=== PATIENT | female | born 1940 | race Caucasian/White ===

== ENCOUNTER → 2016-09-16 | Outpatient (CLI) | payer MEDICARE, BC, OTHER ==
[2016-09-16 09:37] LABS: ALBUMIN 3.5 GM/DL (3.2-5.2); ALBUMIN/GLOBULIN RATIO 1.21 (1.00-1.93); ALKALINE PHOSPHATASE 68 U/L (45-117); ALT/SGPT 17 U/L (12-78); ANION GAP 8 MEQ/L (8-16); AST/SGOT 16 U/L (15-37); BILIRUBIN,TOTAL 0.5 MG/DL (0.2-1.0); BLOOD UREA NITROGEN 18 MG/DL (7-18); CALCIUM LEVEL 8.4 MG/DL (8.8-10.2); CARBON DIOXIDE LEVEL 29 MEQ/L (21-32); CHLORIDE LEVEL 110 MEQ/L (98-107); CHOLESTEROL LEVEL 112 MG/DL (<200); CREATININE FOR GFR 0.91 MG/DL (0.55-1.02); GLOMERULAR FILTRATION RATE > 60.0 (>39); GLUCOSE, FASTING 84 MG/DL (83-110); POTASSIUM SERUM 4.3 MEQ/L (3.5-5.1); SODIUM LEVEL 147 MEQ/L (136-145); TOTAL PROTEIN 6.4 GM/DL (6.4-8.2); TRIGLYCERIDES LEVEL 106 MG/DL (<150)
== END ==
LOC: M WUC 08:25
PROVIDERS: ATTEND Emergency Medicine
DX: I10 Essential (primary) hypertension (principal); E78.2 Mixed hyperlipidemia; E55.9 Vitamin D deficiency, unspecified

== ENCOUNTER → 2016-11-11 | Outpatient (CLI) | payer MEDICARE, BC, OTHER ==
[2016-11-11 16:59] LABS: ALBUMIN 3.5 GM/DL (3.2-5.2); ALBUMIN/GLOBULIN RATIO 1.25 (1.00-1.93); ALKALINE PHOSPHATASE 63 U/L (45-117); ALT/SGPT 21 U/L (12-78); ANION GAP 8 MEQ/L (8-16); AST/SGOT 20 U/L (15-37); BILIRUBIN,TOTAL 0.5 MG/DL (0.2-1.0); BLOOD UREA NITROGEN 14 MG/DL (7-18); CALCIUM LEVEL 8.3 MG/DL (8.8-10.2); CARBON DIOXIDE LEVEL 29 MEQ/L (21-32); CHLORIDE LEVEL 106 MEQ/L (98-107); CREATININE FOR GFR 0.91 MG/DL (0.55-1.02); GLOMERULAR FILTRATION RATE > 60.0 (>39); GLUCOSE, FASTING 93 MG/DL (83-110); POTASSIUM SERUM 4.1 MEQ/L (3.5-5.1); SODIUM LEVEL 143 MEQ/L (136-145); TOTAL PROTEIN 6.3 GM/DL (6.4-8.2)
[2016-11-11 17:11] LABS: BASO % 0.7 % (0.0-1.0); EOS # 0.1 K/mm3 (0.0-0.50); EOS % 2.7 % (0.0-3.0); LARGE UNSTAINED CELL # 0.2 K/mm3 (0.0-0.4); LARGE UNSTAINED CELL % 3.5 % (0.0-4.0); LYMPH # 1.6 K/mm3 (1.5-4.5); LYMPH % 37.1 % (24.0-44.0); MEAN CORPUSCULAR HEMOGLOBIN 33.1 pg (27.0-33.0); MEAN CORPUSCULAR HGB CONC 34.6 g/dl (32.0-36.5); MEAN CORPUSCULAR VOLUME 95.7 fl (80.0-96.0); MONO # 0.3 K/mm3 (0.0-0.8); MONO % 7.5 % (0.0-5.0); NEUTROPHILS # 2.1 K/mm3 (1.8-7.7); NEUTROPHILS % 48.5 % (36.0-66.0); PLATELET COUNT, AUTOMATED 170 k/mm3 (150-450); RED CELL DISTRIBUTION WIDTH 12.9 % (11.5-14.5); WHITE BLOOD COUNT 4.3 K/mm3 (4.0-10.0)
== END ==
LOC: M WUC 11:28
PROVIDERS: ATTEND Emergency Medicine
DX: R19.4 Change in bowel habit (principal)

== ENCOUNTER → 2017-05-04 | Outpatient (CLI) | payer MEDICARE, BC, OTHER ==
--- NOTE | 2017-05-04 14:00 | REP ---
CERVICAL SPINE, SEVEN VIEWS: HISTORY: Spondylosis. COMPARISON: 05/20/2016. There is no acute fracture. The C3-4 through C7-T1 intervertebral discs are decreased in height consistent with disc degeneration. Osteophytes are present on C3-6. The neural foramen are not well seen although there appears to be narrowing of the C3-6 neural foramina secondary to uncinate process hypertrophy. There are 2 mm of anterior subluxation of C2 on 3 with flexion. This is not seen in neutral or extension radiographs. There are 2 mm of anterior subluxation of C3 on 4. This is unchanged with flexion and reduces with extension. There are 2 mm of retrolisthesis of C4 on 5. This reduces with flexion and returns to 2 mm with extension. There are 4 mm of grade 1 spondylolisthesis of C7 on T1. This is unchanged with flexion and extension. IMPRESSION: Degenerative change as described above. Signed by Trace Downs MD 05/04/2017 02:21 P
--- NOTE | 2017-05-04 14:02 | REP ---
LUMBAR SPINE, SEVEN VIEWS: HISTORY: Spondylosis. COMPARISON: 08/04/2015. There is no acute fracture. The L3-4 and L4-5 intervertebral discs are decreased in height consistent with disc degeneration. There is narrowing of the L4-5 and L5-S1 facet joints with associated sclerosis. There are 3 mm of grade 1 spondylolisthesis of L4 on 5. This is unchanged with flexion and extension. IMPRESSION: Degenerative change as described above. Signed by Trace Downs MD 05/04/2017 02:21 P
== END ==
LOC: M WUC 12:04
PROVIDERS: ATTEND Neurological Surgery
DX: M47.816 Spondylosis without myelopathy or radiculopathy, lumbar region (principal); M47.812 Spondylosis without myelopathy or radiculopathy, cervical region

== ENCOUNTER 2017-06-12 09:03 | Emergency (ER) | payer MEDICARE, BC, OTHER ==
[~2017-06-12] VITALS: Ht 157.5 cm; Wt 68.2 kg
[2017-06-12] MEDS ORDERED: RAMI10CA PO (09:15)
[2017-06-12] MEDS ORDERED: NORC1TAB4 PO (09:15)
[2017-06-12] MEDS ORDERED: ASPI1TAB PO (09:15)
[2017-06-12] MEDS ORDERED: NITR4TASL SL (09:16)
[2017-06-12] MEDS ORDERED: ATOR1TAB19 PO (09:16)
[2017-06-12] MEDS ORDERED: ATEN25TA PO (09:16)
[2017-06-12] MEDS ORDERED: ASTE0.15 (09:16)
[2017-06-12] MEDS ORDERED: SYMB16INH INH (09:16)
[2017-06-12] MEDS ORDERED: BONI150T PO (09:16)
[2017-06-12] MEDS ORDERED: ALBU83IN INH (09:16)
[2017-06-12] MEDS ORDERED: SPIR1CAP INH (09:16)
[2017-06-12] MEDS ORDERED: FLUT1LOT EX (09:16)
[2017-06-12] MEDS ORDERED: OMEP40CA2 PO (09:16)
[2017-06-12] MEDS ORDERED: VITA1CAP25 PO (09:16)
[2017-06-12] MEDS ORDERED: MACR100C43 PO (09:16)
[2017-06-12] MEDS ORDERED: ALBUTEROL SULFATE 2.5 MG/0.5 ML INH NEB SOLN NEB ONE (10:00)
--- NOTE | 2017-06-12 10:13 | REP ---
Clinical: Shortness of breath. Technique: PA and lateral. Comparison: 07/08/2016. Findings: Mediastinum and cardiac silhouette are normal. Mild emphysematous changes cannot be excluded. A vague 1 cm ovoid density in the right mid lung zone cannot be excluded. No further consolidation, effusion, or pneumothorax. Skeletal structures are intact. Impression: Cannot exclude a vague 1 cm ovoid density in the periphery of the right mid lung. CT correlation may be warranted for further investigation. Signed by Julio Strauss MD 06/12/2017 10:04 A
[2017-06-12] MEDS ORDERED: PRED20TA PO (11:00)
[2017-06-12] MEDS ORDERED: ZITHTAB PO (11:00)
[2017-06-12 11:20] VITALS: BP 115/65
== END 2017-06-12 11:22 | disposition home or self-care (01) ==
LOC: M ED 09:03
DX: J44.0 Chronic obstructive pulmonary disease with (acute) lower respiratory infection (principal); I50.9 Heart failure, unspecified; I11.0 Hypertensive heart disease with heart failure; I25.2 Old myocardial infarction; Z88.5 Allergy status to narcotic agent; Z88.1 Allergy status to other antibiotic agents; Z79.899 Other long term (current) drug therapy; Z79.82 Long term (current) use of aspirin; Z79.51 Long term (current) use of inhaled steroids

== ENCOUNTER → 2017-06-17 | Outpatient (CLI) | payer MEDICARE, OTHER, BC ==
[~2017-06-17] MED LIST: ALBU83IN INH; ASPI1TAB PO; ASTE0.15; ATEN25TA PO; ATOR1TAB19 PO; BONI150T PO; FLUT1LOT EX; MACR100C43 PO; NITR4TASL SL; NORC1TAB4 PO; OMEP40CA2 PO; PRED20TA PO; RAMI10CA PO; SPIR1CAP INH; SYMB16INH INH; VITA1CAP25 PO; ZITHTAB PO
[2017-06-17 10:50] LABS: ALBUMIN 3.1 GM/DL (3.2-5.2); BILIRUBIN,TOTAL 0.3 MG/DL (0.2-1.0); GLOMERULAR FILTRATION RATE 57.1 (>39); POTASSIUM SERUM 4.2 MEQ/L (3.5-5.1); TOTAL PROTEIN 6.2 GM/DL (6.4-8.2)
== END ==
LOC: M WUC 08:09
PROVIDERS: ATTEND Emergency Medicine
DX: I10 Essential (primary) hypertension (principal); E78.2 Mixed hyperlipidemia; E55.9 Vitamin D deficiency, unspecified

== ENCOUNTER → 2017-08-02 | Outpatient (CLI) | payer MEDICARE, OTHER, BC ==
[2017-08-02 16:31] LABS: BLOOD UREA NITROGEN 15 MG/DL (7-18)
[2017-08-02 16:31] LABS: CREATININE FOR GFR 0.98 MG/DL (0.55-1.02); GLOMERULAR FILTRATION RATE 58.4 (>39)
== END ==
LOC: M WUC 11:23
DX: Z01.812 Encounter for preprocedural laboratory examination (principal)
CPT/HCPCS: 82565

== ENCOUNTER → 2017-11-21 | Outpatient (CLI) | payer MEDICARE, OTHER, BC | LOC: M WUC 13:36 | DX: M50.221 Other cervical disc displacement at C4-C5 level (principal); M43.16 Spondylolisthesis, lumbar region; M85.88 Other specified disorders of bone density and structure, other site; M12.88 Other specific arthropathies, not elsewhere classified, other specified site; M51.36 Other intervertebral disc degeneration, lumbar region; M25.78 Osteophyte, vertebrae; M50.31 Other cervical disc degeneration, high cervical region; M50.321 Other cervical disc degeneration at C4-C5 level; M50.322 Other cervical disc degeneration at C5-C6 level; M50.323 Other cervical disc degeneration at C6-C7 level; M47.896 Other spondylosis, lumbar region; M47.892 Other spondylosis, cervical region; D37.8 Neoplasm of uncertain behavior of other specified digestive organs | CPT/HCPCS: 82150 ==

== ENCOUNTER → 2017-11-21 | Outpatient (CLI) | payer MEDICARE, OTHER, BC ==
[2017-11-21 17:00] LABS: ALBUMIN 3.6 GM/DL (3.2-5.2); ALBUMIN/GLOBULIN RATIO 1.16 (1.00-1.93); ALKALINE PHOSPHATASE 84 U/L (45-117); ALT/SGPT 22 U/L (12-78); AMYLASE 29 U/L (25-115); ANION GAP 4 MEQ/L (8-16); AST/SGOT 22 U/L (7-37); BILIRUBIN,TOTAL 0.3 MG/DL (0.2-1.0); BLOOD UREA NITROGEN 16 MG/DL (7-18); CALCIUM LEVEL 8.4 MG/DL (8.8-10.2); CARBON DIOXIDE LEVEL 28 MEQ/L (21-32); CHLORIDE LEVEL 110 MEQ/L (98-107); CREATININE FOR GFR 1.07 MG/DL (0.55-1.30); GLOMERULAR FILTRATION RATE 52.8 (>39); GLUCOSE, FASTING 146 MG/DL (70-100); LIPASE 81 U/L (73-393); SODIUM LEVEL 142 MEQ/L (136-145); TOTAL PROTEIN 6.7 GM/DL (6.4-8.2)
[2017-11-21 17:36] LABS: BASO # 0.1 10^3/uL (0.0-0.2); BASO % 1.1 % (0.0-1.0); EOS # 0.1 10^3/uL (0.0-0.50); EOS % 1.3 % (0.0-3.0); HEMATOCRIT 36.7 % (36.0-47.0); HEMOGLOBIN 11.9 g/dl (12.0-15.5); LYMPH # 1.7 10^3/uL (1.5-4.5); LYMPH % 32.3 % (24.0-44.0); MEAN CORPUSCULAR HGB CONC 32.4 g/dl (32.0-36.5); MEAN CORPUSCULAR VOLUME 95.6 fl (80.0-96.0); MONO # 0.6 10^3/uL (0.0-0.8); MONO % 10.6 % (0.0-5.0); NEUTROPHILS # 2.9 10^3/uL (1.8-7.7); NEUTROPHILS % 54.7 % (36.0-66.0); PLATELET COUNT, AUTOMATED 201 10^3/uL (150-450); RED BLOOD COUNT 3.84 10^6/uL (4.00-5.40); RED CELL DISTRIBUTION WIDTH 13.3 % (11.5-14.5); WHITE BLOOD COUNT 5.3 10^3/uL (4.0-10.0)
[2017-11-22 11:18] LABS: CA19-9 TUMOR MARKER,CARBOHYDRA 13.4 U/ML (<35.0)
== END ==
LOC: M WUC 13:44
DX: D37.8 Neoplasm of uncertain behavior of other specified digestive organs (principal)

== ENCOUNTER → 2018-02-01 | Outpatient (CLI) | payer MEDICARE, OTHER, BC ==
[2018-02-01 14:32] LABS: CALCIUM LEVEL 8.9 MG/DL (8.8-10.2)
[2018-02-01 15:00] LABS: TOTAL 25(OH) VITAMIN D 59.5 NG/ML (30.0-100.0)
== END ==
LOC: M WUC 12:31
DX: M81.0 Age-related osteoporosis without current pathological fracture (principal)
CPT/HCPCS: 82310

== ENCOUNTER → 2018-02-26 | Outpatient (REF) | payer MEDICARE, OTHER, BC | LOC: M LAB REF 11:34 | DX: R30.0 Dysuria (principal) | CPT/HCPCS: 87088; 87186 ==

== ENCOUNTER 2018-10-26 15:32 | Emergency (ER) | payer MEDICARE, BC, OTHER ==
[~2018-10-26] VITALS: Ht 157.5 cm; Wt 67.3 kg
[2018-10-26 15:32] VITALS: BP 172/74
[~2018-10-26 15:32] MED LIST changes: -ASPI1TAB PO; +ASPI81TA26 PO; -BONI150T PO; +BONI1TAB PO; -NORC1TAB4 PO; +NORC1TAB7 PO; -RAMI10CA PO; +RAMI1CAP26 PO
[2018-10-26] MEDS ORDERED: HYDR-3719 (16:07)
[2018-10-26] MEDS ORDERED: RAMI1CAP24 (16:07)
[2018-10-26] MEDS ORDERED: PRED10TA2 PO (16:29)
[2018-10-26] MEDS ORDERED: KEFL500C17 PO (16:29)
[2018-10-26] MEDS ORDERED: predniSONE 20 MG TAB PO ONE (16:30)
[2018-10-26] MEDS ORDERED: CEPHALEXIN 500 MG CAP PO ONE (16:30)
== END 2018-10-26 16:51 | disposition home or self-care (01) ==
LOC: M ED 15:32
DX: T63.444A Toxic effect of venom of bees, undetermined, initial encounter (principal); W57.XXXA Bitten or stung by nonvenomous insect and other nonvenomous arthropods, initial encounter; Y92.019 Unspecified place in single-family (private) house as the place of occurrence of the external cause

== ENCOUNTER → 2019-05-11 | Outpatient (CLI) | payer MEDICARE, BC, OTHER ==
[~2019-05-11] MED LIST changes: +HYDR-3719; +KEFL500C17 PO; -OMEP40CA2 PO; +OMEP40CA97 PO; +PRED10TA2 PO; +RAMI1CAP24
[2019-05-11 10:08] LABS: ALBUMIN 3.4 GM/DL (3.2-5.2); BILIRUBIN,TOTAL 0.4 MG/DL (0.2-1.0); CALCIUM LEVEL 8.9 MG/DL (8.8-10.2); CHOLESTEROL RISK RATIO 1.968 (<5); CREATININE FOR GFR 1.04 MG/DL (0.55-1.30); GLOMERULAR FILTRATION RATE 54.3 (>32); POTASSIUM SERUM 4.7 MEQ/L (3.5-5.1); TOTAL PROTEIN 6.4 GM/DL (6.4-8.2)
[2019-05-11 10:17] LABS: TOTAL 25(OH) VITAMIN D 45.5 NG/ML (30.0-100.0)
== END ==
LOC: M WUC 08:40
PROVIDERS: ATTEND Physician Assistant
DX: I10 Essential (primary) hypertension (principal); E78.2 Mixed hyperlipidemia; E55.9 Vitamin D deficiency, unspecified

== ENCOUNTER → 2019-12-18 | Outpatient (CLI) | payer MEDICARE, BC, OTHER ==
--- NOTE | 2019-12-18 14:01 | REP ---
REASON: History of chronic lung disease and chest pain. The latest prior for comparison is 06/12/2019. The interstitial markings are mildly diffusely increased status quo. There is no acute patchy parenchymal opacities or pleural effusions have developed. The cardiomediastinal silhouette is unchanged. The heart is not enlarged. The pleural angles remain sharp. The osseous structures are stable and intact. IMPRESSION: Chronic changes without evidence of acute cardiopulmonary disease. Electronically Signed by Jacky Davey DO 12/18/2019 03:12 P
== END ==
LOC: M WUC 11:05
PROVIDERS: ATTEND Internal Medicine Pulmonary Disease
DX: J44.9 Chronic obstructive pulmonary disease, unspecified (principal); R07.89 Other chest pain

== ENCOUNTER → 2020-01-21 | Outpatient (CLI) | payer MEDICARE, BC, OTHER ==
--- NOTE | 2020-01-21 12:54 | REP ---
REASON FOR EXAM: Dyspnea. COMPARISON: Multiple, the latest 12/18/2019. There is no change from the prior exam. The cardiomediastinal silhouette and lung riley are stable. No acute patchy parenchymal opacities or pleural effusions have developed. The heart is not enlarged. The osseous structures are stable and intact. IMPRESSION: Stable chest. Electronically Signed by Jacky Davey DO 01/21/2020 01:24 P
== END ==
LOC: M WUC 09:40
PROVIDERS: ATTEND Physician Assistant
DX: R06.02 Shortness of breath (principal); M54.9 Dorsalgia, unspecified

== ENCOUNTER → 2020-03-17 | Outpatient (CLI) | payer MEDICARE, BC, OTHER ==
[2020-03-17 13:08] LABS: ALBUMIN 3.5 GM/DL (3.2-5.2); BILIRUBIN,TOTAL 0.6 MG/DL (0.2-1.0); CALCIUM LEVEL 9.1 MG/DL (8.8-10.2); CHOLESTEROL RISK RATIO 2.263 (<5); CREATININE FOR GFR 1.08 MG/DL (0.55-1.30); GLOMERULAR FILTRATION RATE 51.8 (>32); POTASSIUM SERUM 4.2 MEQ/L (3.5-5.1); TOTAL PROTEIN 6.1 GM/DL (6.4-8.2)
== END ==
LOC: M WUC 11:12
PROVIDERS: ATTEND Physician Assistant Medical
DX: E78.2 Mixed hyperlipidemia (principal); M81.0 Age-related osteoporosis without current pathological fracture; Z79.899 Other long term (current) drug therapy; E55.9 Vitamin D deficiency, unspecified

== ENCOUNTER → 2020-09-12 | Outpatient (CLI) | payer MEDICARE, BC, OTHER ==
--- NOTE | 2020-09-12 14:44 | REP ---
INDICATION: COPD. COMPARISON: Comparison radiographs January 21, 2020. TECHNIQUE: Two views.. FINDINGS: The lungs are hyperinflated and free of infiltrate. Pleural angles are sharp. Heart is not felt to be enlarged. The thoracic aorta is tortuous as before. There are clips in right upper quadrant the abdomen. Pulmonary vasculature is not increased. The pleural angles are sharp. There is virtually complete collapse of 1 of the midthoracic vertebrae on the lateral film unchanged from the January 21, 2020 prior study. No other or acute bony abnormality is seen. IMPRESSION: Hyperinflation. Wedged midthoracic vertebrae unchanged. No acute disease.. <Electronically signed by Keanu Louis > 09/12/20 [id number]
== END ==
LOC: M WUC 11:52
PROVIDERS: ATTEND Physician Assistant Medical
DX: J44.9 Chronic obstructive pulmonary disease, unspecified (principal); M48.54XA Collapsed vertebra, not elsewhere classified, thoracic region, initial encounter for fracture

== ENCOUNTER → 2021-02-03 | Outpatient (CLI) | payer MEDICARE, BC, OTHER ==
[~2021-02-03] MED LIST changes: +OMEP40CA4 PO; -OMEP40CA97 PO
--- NOTE | 2021-02-03 12:59 | REP ---
INDICATION: OTHER BENIGN NEOPLASM SKIN/RT UPPER LIMP INC SHOULDER. COMPARISON: None. TECHNIQUE: AP and lateral views of the right forearm FINDINGS: AP and lateral views of the right forearm demonstrate diffuse osteopenia. There is no evidence of fracture, subluxation or erosive change. There is some chondrocalcinosis at the wrist and there is osteoarthritis at the 1st carpometacarpal articulation as well as the articulation between the navicula and the greater multangular.. IMPRESSION: Diffuse osteopenia. 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 No acute bony abnormality. <Electronically signed by Keanu Louis > 02/03/21 [id number]
== END ==
LOC: M SOG 10:43
PROVIDERS: ATTEND Orthopaedic Surgery Sports Medicine
DX: D23.61 Other benign neoplasm of skin of right upper limb, including shoulder (principal)

== ENCOUNTER → 2021-02-27 | Outpatient (REF) | payer MEDICARE, BC, OTHER ==
[2021-02-27 13:01] LABS: ALBUMIN 3.5 GM/DL (3.2-5.2); BILIRUBIN,TOTAL 0.5 MG/DL (0.2-1.0); CALCIUM LEVEL 8.2 MG/DL (8.8-10.2); CHOLESTEROL RISK RATIO 2.338 (<5); CREATININE FOR GFR 1.25 MG/DL (0.55-1.30); GLOMERULAR FILTRATION RATE 43.7 (>32); POTASSIUM SERUM 4.4 MEQ/L (3.5-5.1); TOTAL PROTEIN 6.3 GM/DL (6.4-8.2)
== END ==
LOC: M LAB REF 12:17
PROVIDERS: ATTEND Nurse Practitioner Family
DX: I10 Essential (primary) hypertension (principal)

== ENCOUNTER → 2021-02-27 | Outpatient (CLI) | payer MEDICARE, BC, OTHER ==
--- NOTE | 2021-02-27 09:29 | REP ---
INDICATION: CONTUSION COMPARISON: None. TECHNIQUE: There are four views. FINDINGS: There is diffuse demineralization. There is joint space narrowing and cortical eburnation at the thumb CMC articulation, compatible with osteoarthritis. There is calcification of the triangular fibrocartilage, compatible with CPPD. IMPRESSION: Demineralization. Osteoarthritis of the thumb CMC. CPPD. <Electronically signed by Malcom Simpson > 02/27/21 [id number]
--- NOTE | 2021-02-27 09:30 | REP ---
INDICATION: CONTUSION COMPARISON: None. TECHNIQUE: There are four views. FINDINGS: There is diffuse demineralization. There is joint space narrowing and cortical eburnation of the PIP and D IP articulations and of the thumb CMC articulation, compatible with osteoarthritis. There is no fracture or dislocation. There are no calcifications or foreign bodies. IMPRESSION: Demineralization. Osteoarthritis. <Electronically signed by Malcom Simpson > 02/27/21 [id number]
== END ==
LOC: M WUC 08:54
PROVIDERS: ATTEND Physician Assistant
DX: S60.212A Contusion of left wrist, initial encounter (principal); S60.222A Contusion of left hand, initial encounter; W18.30XA Fall on same level, unspecified, initial encounter; Y92.009 Unspecified place in unspecified non-institutional (private) residence as the place of occurrence of the external cause; I10 Essential (primary) hypertension

== ENCOUNTER → 2021-04-21 | Outpatient (REF) | payer MEDICARE, BC, OTHER ==
[2021-04-21 14:16] LABS: CREATININE FOR GFR 1.13 MG/DL (0.55-1.30); GLOMERULAR FILTRATION RATE 49.1 (>32)
== END ==
LOC: M WUC 11:39
PROVIDERS: ATTEND Orthopaedic Surgery Sports Medicine
DX: M67.431 Ganglion, right wrist (principal)

== ENCOUNTER → 2021-05-26 | Outpatient (CLI) | payer MEDICARE, BC, OTHER ==
--- NOTE | 2021-05-26 15:46 | REP ---
INDICATION: SHORTNESS OF BREATH. COMPARISON: 09/12/2020 TECHNIQUE: PA and lateral FINDINGS: Cardiomediastinal silhouette lung riley are unchanged. Once again, there is lung field hyperexpansion. No acute patchy parenchymal opacities or pleural effusions have developed. There are chronic changes seen involving the spine status quo. IMPRESSION: No evidence of acute cardiopulmonary disease or significant change compared to the prior exam. <Electronically signed by Jacky Davey > 05/26/21 [id number]
== END ==
LOC: M PLAIMG 12:30
PROVIDERS: ATTEND Internal Medicine Pulmonary Disease
DX: R06.02 Shortness of breath (principal)

== ENCOUNTER → 2021-06-17 | Outpatient (CLI) | payer MEDICARE, BC, OTHER ==
[~2021-06-17] MED LIST changes: +INCR1INH INH
[2021-06-17 16:24] LABS: BASO # 0.1 10^3/uL (0.0-0.2); BASO % 0.7 % (0.0-1.0); EOS # 0.2 10^3/uL (0.0-0.5); EOS % 2.3 % (0.0-3.0); HEMATOCRIT 38.8 % (36.0-47.0); HEMOGLOBIN 12.2 g/dl (12.0-15.5); LYMPH # 1.9 10^3/uL (1.5-5.0); LYMPH % 21.5 % (24.0-44.0); MEAN CORPUSCULAR HEMOGLOBIN 31.1 pg (27.0-33.0); MEAN CORPUSCULAR HGB CONC 31.4 g/dl (32.0-36.5); MONO # 0.7 10^3/uL (0.0-0.8); MONO % 8.4 % (2.0-8.0); NEUTROPHILS # 5.8 10^3/uL (1.5-8.5); NEUTROPHILS % 66.9 % (36.0-66.0); PLATELET COUNT, AUTOMATED 197 10^3/uL (150-450); RED BLOOD COUNT 3.92 10^6/uL (4.00-5.40); WHITE BLOOD COUNT 8.7 10^3/uL (4.0-10.0)
== END ==
LOC: M WUC 10:38
PROVIDERS: ATTEND Internal Medicine Pulmonary Disease
DX: J44.9 Chronic obstructive pulmonary disease, unspecified (principal)

== ENCOUNTER → 2021-07-20 | Outpatient (CLI) | payer MEDICARE, BC, OTHER ==
[~2021-07-20] MED LIST changes: -INCR1INH INH
--- NOTE | 2021-07-20 11:52 | REP ---
INDICATION: SOB. COMPARISON: 05/26/2021 latest prior TECHNIQUE: PA and lateral FINDINGS: The superior mediastinal structures are midline. The cardiac silhouette is unremarkable in size, shape, and position. The diaphragmatic surfaces of the lungs are regular, and the costophrenic angles are clear. The pulmonary riley are clear. The lung riley are mildly hyperexpanded status quo. The imaged osseous structures are intact. IMPRESSION: There is no acute cardiopulmonary disease. <Electronically signed by Jacky Davey > 07/20/21 [id number]
--- NOTE | 2021-07-20 12:40 | REP ---
INDICATION: SOB. COMPARISON: Chest radiograph 07/20/2021. TECHNIQUE/RADIOTRACER AND DOSE: Following the intravenous administration of 5.4 mCi technetium 99 M MAA and the inhalation of 1.0 mCi technetium 99 M DTPA aerosol, multiple images are obtained in various projections. FINDINGS: There are multiple bilateral peripheral small subsegmental perfusion defects. There are corresponding multiple peripheral bilateral matching ventilation defects which are larger in general than the perfusion defects. No V/Q mismatch identified. IMPRESSION: Findings indeterminate for the assessment of probability of pulmonary embolism. Multiple bilateral peripheral small subsegmental perfusion defects with corresponding larger ventilation defects. <Electronically signed by Malcom Velazquez > 07/20/21 [id number]
== END ==
LOC: M RAD 11:10
PROVIDERS: ATTEND Internal Medicine Pulmonary Disease
DX: R06.02 Shortness of breath (principal)
CPT/HCPCS: 71046; 78582; A9540; A9567

== ENCOUNTER 2021-08-08 02:21 | Emergency (ER) | payer MEDICARE, BC, OTHER ==
[~2021-08-08] VITALS: Ht 154.9 cm; Wt 68.2 kg
[2021-08-08 03:08] LABS: BASO % 0.6 % (0.0-1.0); EOS # 0.1 10^3/uL (0.0-0.5); EOS % 2.1 % (0.0-3.0); HEMATOCRIT 35.7 % (36.0-47.0); HEMOGLOBIN 11.5 g/dl (12.0-15.5); LYMPH # 1.7 10^3/uL (1.5-5.0); LYMPH % 25.6 % (24.0-44.0); MEAN CORPUSCULAR HEMOGLOBIN 31.3 pg (27.0-33.0); MEAN CORPUSCULAR HGB CONC 32.2 g/dl (32.0-36.5); MEAN CORPUSCULAR VOLUME 97.3 fl (80.0-96.0); MONO # 0.6 10^3/uL (0.0-0.8); MONO % 9.1 % (2.0-8.0); NEUTROPHILS # 4.2 10^3/uL (1.5-8.5); NEUTROPHILS % 62.3 % (36.0-66.0); PLATELET COUNT, AUTOMATED 178 10^3/uL (150-450); RED BLOOD COUNT 3.67 10^6/uL (4.00-5.40); WHITE BLOOD COUNT 6.7 10^3/uL (4.0-10.0)
[2021-08-08] MEDS ORDERED: NITROGLYCERIN 0.4 MG SUBL TABLET SL PRN (03:20)
[2021-08-08] MEDS ORDERED: INCR1INH INH (03:25)
[2021-08-08 03:26] LABS: CK-MB VALUE MASS 1.3 NG/ML (<3.6); MB/CK RELATIVE INDEX 1.18 (< OR =4)
[2021-08-08 03:27] VITALS: BP 207/89
[2021-08-08 03:37] LABS: ALBUMIN 3.4 GM/DL (3.2-5.2); BILIRUBIN,TOTAL 0.3 MG/DL (0.2-1.0); CALCIUM LEVEL 8.5 MG/DL (8.8-10.2); CREATININE FOR GFR 1.09 MG/DL (0.55-1.30); GLOMERULAR FILTRATION RATE 51.2 (>32); POTASSIUM SERUM 4.4 MEQ/L (3.5-5.1); TOTAL PROTEIN 6.2 GM/DL (6.4-8.2)
[2021-08-08] MEDS ORDERED: ACETAMINOPHEN 500 MG TAB PO ONE (04:55)
[2021-08-08 05:06] VITALS: BP 185/83
== END 2021-08-08 05:15 | disposition home or self-care (01) ==
LOC: M ED 02:21
DX: M94.0 Chondrocostal junction syndrome [Tietze] (principal); I45.19 Other right bundle-branch block; I11.0 Hypertensive heart disease with heart failure; I50.9 Heart failure, unspecified; I25.2 Old myocardial infarction; E78.5 Hyperlipidemia, unspecified; K21.9 Gastro-esophageal reflux disease without esophagitis; J44.9 Chronic obstructive pulmonary disease, unspecified; Z88.1 Allergy status to other antibiotic agents; Z88.5 Allergy status to narcotic agent; Z79.899 Other long term (current) drug therapy; Z79.82 Long term (current) use of aspirin; Z79.51 Long term (current) use of inhaled steroids

== ENCOUNTER → 2021-08-20 | Outpatient (CLI) | payer MEDICARE, BC, OTHER ==
[~2021-08-20] MED LIST changes: +INCR1INH INH
[2021-08-20 10:57] LABS: ALBUMIN 3.7 GM/DL (3.2-5.2); BILIRUBIN,TOTAL 0.4 MG/DL (0.2-1.0); CALCIUM LEVEL 8.9 MG/DL (8.8-10.2); CHOLESTEROL RISK RATIO 2.177 (<5); CREATININE FOR GFR 1.09 MG/DL (0.55-1.30); GLOMERULAR FILTRATION RATE 51.2 (>32); POTASSIUM SERUM 4.5 MEQ/L (3.5-5.1); TOTAL PROTEIN 6.5 GM/DL (6.4-8.2)
== END ==
LOC: M WUC 08:07
PROVIDERS: ATTEND Nurse Practitioner Family
DX: I10 Essential (primary) hypertension (principal)

== ENCOUNTER 2021-10-23 11:45 | Inpatient (IN) | payer MEDICARE, BC, OTHER ==
[~2021-10-23] VITALS: Ht 154.9 cm; Wt 70.3 kg
[~2021-10-23 11:45] MED LIST changes: +AMLO1TAB24 PO; +CARV12.5 PO; +ELIQ2.5T PO; +HYDR-3363 PO; -HYDR-3719; +HYDR-3719 PO; +MUCI600T31 PO; +POTA-136 PO; -RAMI1CAP24; +RAMI1CAP24 PO; +TRIM100T16 PO; +VITA200031 PO; +ZOSY1SOL5 IV
[2021-10-23] MEDS ORDERED: NITROGLYCERIN 0.4 MG SUBL TABLET SL PRN (12:05)
[2021-10-23] MEDS ORDERED: ACETAMINOPHEN TAB 650MG DOSE (2X325MG) PO PRN (12:05)
[2021-10-23 16:25] VITALS: BP 138/64
[2021-10-23] MEDS: PIPERACILLIN/TAZOBACTAM SOD 3.375 GM in D5W MINI-BAG PLUS 50 ML IV SCH (19:21)
[2021-10-23] MEDS: SYMBICORT 160/4.5MCG INHALER 6GM INH SCH (19:23)
[2021-10-23] MEDS: COMBIVENT RESPIMAT 100-20MCG INHALER 4GM INH SCH (19:23)
[2021-10-23 20:00] VITALS: BP 150/82
[2021-10-23] MEDS: OMEPRAZOLE 20MG CAP PO SCH (20:22)
[2021-10-23] MEDS: LACTOBACILLUS ACIDOPHILUS CAP (BACID) PO SCH (20:22)
[2021-10-23] MEDS: CARVedilol 12.5 MG TAB PO SCH (20:22)
[2021-10-23] MEDS: MAGNESIUM OXIDE 400MG TAB (MAG-OX) PO SCH (20:22)
[2021-10-23] MEDS: guaiFENesin 200 MG TAB PO SCH (20:23)
[2021-10-23] MEDS: ASPIRIN 81MG ENTERIC TABLET PO SCH (20:23)
[2021-10-23] MEDS: APIXABAN 2.5 MG TAB (ELIQUIS) PO SCH (20:23)
[2021-10-23] MEDS: ATORVASTATIN 10 MG TAB PO SCH (20:23)
[2021-10-23] MEDS: ACETAMINOPHEN 500 MG TAB PO SCH (20:23)
[2021-10-23] MEDS: DOCUSATE SODIUM 100MG CAPSULE PO SCH (20:26)
[2021-10-23] MEDS: SENNA 8.6 MG TAB (SENOKOT) PO SCH (20:27)
[2021-10-23] MEDS: REMEDY PHYTOPLEX Z-GUARD PASTE 113GM TUBE (FROM STOREROOM PRODUCT) TOP SCH (20:27)
[2021-10-24] MEDS: PIPERACILLIN/TAZOBACTAM SOD 3.375 GM in D5W MINI-BAG PLUS 50 ML IV SCH ×5 (00:09→23:45)
[2021-10-24] MEDS: RAMELTEON 8 MG TAB (ROZEREM) PO PRN ×2 (00:17→20:21)
[2021-10-24 06:00] VITALS: BP 170/90
[2021-10-24] MEDS: amLODIPine 5 MG TAB PO SCH (06:21)
[2021-10-24] MEDS: CARVedilol 12.5 MG TAB PO SCH ×2 (06:21→20:21)
[2021-10-24] MEDS: SYMBICORT 160/4.5MCG INHALER 6GM INH SCH ×2 (07:28→19:36)
[2021-10-24] MEDS: COMBIVENT RESPIMAT 100-20MCG INHALER 4GM INH SCH ×4 (07:28→19:36)
[2021-10-24 07:56] VITALS: BP 112/62
[2021-10-24 08:01] LABS: BASO % 0.4 % (0.0-1.0); EOS # 0.2 10^3/uL (0.0-0.5); EOS % 2.7 % (0.0-3.0); HEMATOCRIT 33.1 % (36.0-47.0); HEMOGLOBIN 10.5 g/dl (12.0-15.5); LYMPH # 1.1 10^3/uL (1.5-5.0); LYMPH % 13.2 % (24.0-44.0); MEAN CORPUSCULAR HEMOGLOBIN 30.9 pg (27.0-33.0); MEAN CORPUSCULAR HGB CONC 31.7 g/dl (32.0-36.5); MEAN CORPUSCULAR VOLUME 97.4 fl (80.0-96.0); MONO # 0.4 10^3/uL (0.0-0.8); MONO % 5.2 % (2.0-8.0); NEUTROPHILS # 6.5 10^3/uL (1.5-8.5); NEUTROPHILS % 76.8 % (36.0-66.0); PLATELET COUNT, AUTOMATED 381 10^3/uL (150-450); WHITE BLOOD COUNT 8.4 10^3/uL (4.0-10.0)
[2021-10-24 08:27] LABS: ALBUMIN 2.6 GM/DL (3.2-5.2); BILIRUBIN,TOTAL 0.5 MG/DL (0.2-1.0); CALCIUM LEVEL 8.9 MG/DL (8.8-10.2); CREATININE FOR GFR 1.17 MG/DL (0.55-1.30); GLOMERULAR FILTRATION RATE 47.1 (>32); POTASSIUM SERUM 4.8 MEQ/L (3.5-5.1); TOTAL PROTEIN 6.1 GM/DL (6.4-8.2)
[2021-10-24] MEDS: ACETAMINOPHEN 500 MG TAB PO SCH ×3 (09:00→23:46)
[2021-10-24] MEDS: REMEDY PHYTOPLEX Z-GUARD PASTE 113GM TUBE (FROM STOREROOM PRODUCT) TOP SCH ×3 (09:00→19:43)
[2021-10-24] MEDS: DOCUSATE SODIUM 100MG CAPSULE PO SCH ×2 (09:00→19:43)
[2021-10-24] MEDS: APIXABAN 2.5 MG TAB (ELIQUIS) PO SCH ×2 (09:01→20:21)
[2021-10-24] MEDS: guaiFENesin 200 MG TAB PO SCH ×3 (09:01→20:21)
[2021-10-24] MEDS: LACTOBACILLUS ACIDOPHILUS CAP (BACID) PO SCH ×4 (09:06→20:21)
[2021-10-24] MEDS: POTASSIUM CHLORIDE 10MEQ SR TABLET PO SCH (09:07)
[2021-10-24] MEDS: MAGNESIUM OXIDE 400MG TAB (MAG-OX) PO SCH ×2 (09:09→20:22)
[2021-10-24 14:00] VITALS: BP 132/62
[2021-10-24] MEDS: SENNA 8.6 MG TAB (SENOKOT) PO SCH (19:43)
[2021-10-24 20:00] VITALS: BP 152/80
[2021-10-24] MEDS: OMEPRAZOLE 20MG CAP PO SCH (20:21)
[2021-10-24] MEDS: ASPIRIN 81MG ENTERIC TABLET PO SCH (20:21)
[2021-10-24] MEDS: ATORVASTATIN 10 MG TAB PO SCH (20:22)
[2021-10-25] MEDS: PIPERACILLIN/TAZOBACTAM SOD 3.375 GM in D5W MINI-BAG PLUS 50 ML IV SCH ×4 (05:32→23:47)
[2021-10-25 06:00] VITALS: BP 160/92
[2021-10-25] MEDS: SYMBICORT 160/4.5MCG INHALER 6GM INH SCH ×2 (07:31→19:54)
[2021-10-25] MEDS: COMBIVENT RESPIMAT 100-20MCG INHALER 4GM INH SCH ×4 (07:31→19:54)
[2021-10-25] MEDS: LACTOBACILLUS ACIDOPHILUS CAP (BACID) PO SCH ×4 (08:28→20:55)
[2021-10-25] MEDS: POTASSIUM CHLORIDE 10MEQ SR TABLET PO SCH (08:29)
[2021-10-25] MEDS: MAGNESIUM OXIDE 400MG TAB (MAG-OX) PO SCH ×2 (08:29→20:42)
[2021-10-25] MEDS: guaiFENesin 200 MG TAB PO SCH ×3 (08:29→20:42)
[2021-10-25] MEDS: APIXABAN 2.5 MG TAB (ELIQUIS) PO SCH ×2 (08:29→20:41)
[2021-10-25] MEDS: ACETAMINOPHEN 500 MG TAB PO SCH ×3 (08:30→20:43)
[2021-10-25] MEDS: CARVedilol 12.5 MG TAB PO SCH ×2 (08:30→20:43)
[2021-10-25] MEDS: DOCUSATE SODIUM 100MG CAPSULE PO SCH ×2 (08:30→20:55)
[2021-10-25] MEDS: amLODIPine 5 MG TAB PO SCH (08:30)
[2021-10-25] MEDS: REMEDY PHYTOPLEX Z-GUARD PASTE 113GM TUBE (FROM STOREROOM PRODUCT) TOP SCH ×3 (08:30→20:43)
[2021-10-25 14:00] VITALS: BP 138/62
[2021-10-25 20:00] VITALS: BP 164/73
[2021-10-25] MEDS: OMEPRAZOLE 20MG CAP PO SCH (20:41)
[2021-10-25] MEDS: ATORVASTATIN 10 MG TAB PO SCH (20:42)
[2021-10-25] MEDS: ASPIRIN 81MG ENTERIC TABLET PO SCH (20:42)
[2021-10-25] MEDS: SENNA 8.6 MG TAB (SENOKOT) PO SCH (20:55)
[2021-10-26] MEDS: PIPERACILLIN/TAZOBACTAM SOD 3.375 GM in D5W MINI-BAG PLUS 50 ML IV SCH ×2 (05:47→12:03)
[2021-10-26] MEDS: SYMBICORT 160/4.5MCG INHALER 6GM INH SCH ×2 (05:59→19:13)
[2021-10-26] MEDS: COMBIVENT RESPIMAT 100-20MCG INHALER 4GM INH SCH ×4 (05:59→19:13)
[2021-10-26 06:00] VITALS: BP 148/76
[2021-10-26] MEDS: guaiFENesin 200 MG TAB PO SCH ×3 (08:52→21:05)
[2021-10-26] MEDS: LACTOBACILLUS ACIDOPHILUS CAP (BACID) PO SCH ×4 (08:52→21:06)
[2021-10-26] MEDS: MAGNESIUM OXIDE 400MG TAB (MAG-OX) PO SCH ×2 (08:53→21:06)
[2021-10-26] MEDS: CARVedilol 12.5 MG TAB PO SCH ×2 (08:53→21:06)
[2021-10-26] MEDS: ACETAMINOPHEN 500 MG TAB PO SCH ×3 (08:53→21:07)
[2021-10-26] MEDS: APIXABAN 2.5 MG TAB (ELIQUIS) PO SCH ×2 (08:53→21:05)
[2021-10-26] MEDS: REMEDY PHYTOPLEX Z-GUARD PASTE 113GM TUBE (FROM STOREROOM PRODUCT) TOP SCH ×3 (08:54→21:00)
[2021-10-26] MEDS: DOCUSATE SODIUM 100MG CAPSULE PO SCH ×2 (08:54→21:00)
[2021-10-26] MEDS ORDERED: HOME MED LIST COMPLETE! XX SCH (09:45)
[2021-10-26 11:18] LABS: BASO # 0.1 10^3/uL (0.0-0.2); BASO % 0.9 % (0.0-1.0); EOS # 0.2 10^3/uL (0.0-0.5); EOS % 2.7 % (0.0-3.0); HEMATOCRIT 31.3 % (36.0-47.0); HEMOGLOBIN 9.7 g/dl (12.0-15.5); LYMPH % 17.6 % (24.0-44.0); MEAN CORPUSCULAR HEMOGLOBIN 30.8 pg (27.0-33.0); MEAN CORPUSCULAR VOLUME 99.4 fl (80.0-96.0); MONO # 0.6 10^3/uL (0.0-0.8); NEUTROPHILS # 3.8 10^3/uL (1.5-8.5); NEUTROPHILS % 68.1 % (36.0-66.0); PLATELET COUNT, AUTOMATED 330 10^3/uL (150-450); RED BLOOD COUNT 3.15 10^6/uL (4.00-5.40); WHITE BLOOD COUNT 5.5 10^3/uL (4.0-10.0)
[2021-10-26 11:51] LABS: CALCIUM LEVEL 8.8 MG/DL (8.8-10.2); CREATININE FOR GFR 1.18 MG/DL (0.55-1.30); GLOMERULAR FILTRATION RATE 46.7 (>32); POTASSIUM SERUM 4.4 MEQ/L (3.5-5.1)
[2021-10-26 14:00] VITALS: BP 132/64
[2021-10-26 20:00] VITALS: BP 154/84
[2021-10-26] MEDS: SENNA 8.6 MG TAB (SENOKOT) PO SCH (21:00)
[2021-10-26] MEDS: RAMELTEON 8 MG TAB (ROZEREM) PO PRN (21:05)
[2021-10-26] MEDS: ATORVASTATIN 10 MG TAB PO SCH (21:05)
[2021-10-26] MEDS: ASPIRIN 81MG ENTERIC TABLET PO SCH (21:05)
[2021-10-26] MEDS: OMEPRAZOLE 20MG CAP PO SCH (21:06)
[2021-10-27 06:00] VITALS: BP 144/62
[2021-10-27] MEDS: SYMBICORT 160/4.5MCG INHALER 6GM INH SCH ×2 (07:37→20:14)
[2021-10-27] MEDS: COMBIVENT RESPIMAT 100-20MCG INHALER 4GM INH SCH ×4 (07:37→20:14)
[2021-10-27 08:10] VITALS: BP 144/62
[2021-10-27] MEDS: guaiFENesin 200 MG TAB PO SCH ×3 (08:23→20:30)
[2021-10-27] MEDS: LACTOBACILLUS ACIDOPHILUS CAP (BACID) PO SCH ×4 (08:23→20:31)
[2021-10-27] MEDS: MAGNESIUM OXIDE 400MG TAB (MAG-OX) PO SCH ×2 (08:24→20:31)
[2021-10-27] MEDS: ACETAMINOPHEN 500 MG TAB PO SCH ×3 (08:24→20:32)
[2021-10-27] MEDS: CARVedilol 12.5 MG TAB PO SCH ×2 (08:25→20:32)
[2021-10-27] MEDS: REMEDY PHYTOPLEX Z-GUARD PASTE 113GM TUBE (FROM STOREROOM PRODUCT) TOP SCH ×3 (08:28→20:33)
[2021-10-27] MEDS: APIXABAN 2.5 MG TAB (ELIQUIS) PO SCH ×2 (08:28→20:31)
[2021-10-27] MEDS: DOCUSATE SODIUM 100MG CAPSULE PO SCH ×2 (08:29→20:33)
[2021-10-27 14:00] VITALS: BP 130/70
[2021-10-27 20:00] VITALS: BP 140/70
[2021-10-27] MEDS: RAMELTEON 8 MG TAB (ROZEREM) PO PRN (20:30)
[2021-10-27] MEDS: OMEPRAZOLE 20MG CAP PO SCH (20:31)
[2021-10-27] MEDS: ASPIRIN 81MG ENTERIC TABLET PO SCH (20:31)
[2021-10-27] MEDS: ATORVASTATIN 10 MG TAB PO SCH (20:32)
[2021-10-27] MEDS: SENNA 8.6 MG TAB (SENOKOT) PO SCH (20:33)
[2021-10-28 06:00] VITALS: BP 160/80
[2021-10-28] MEDS: SYMBICORT 160/4.5MCG INHALER 6GM INH SCH ×2 (07:28→20:14)
[2021-10-28] MEDS: COMBIVENT RESPIMAT 100-20MCG INHALER 4GM INH SCH ×4 (07:28→20:14)
[2021-10-28 07:52] LABS: BASO # 0.1 10^3/uL (0.0-0.2); BASO % 1.4 % (0.0-1.0); EOS # 0.1 10^3/uL (0.0-0.5); EOS % 1.8 % (0.0-3.0); HEMATOCRIT 32.8 % (36.0-47.0); HEMOGLOBIN 10.1 g/dl (12.0-15.5); LYMPH # 1.3 10^3/uL (1.5-5.0); LYMPH % 27.3 % (24.0-44.0); MEAN CORPUSCULAR HEMOGLOBIN 30.5 pg (27.0-33.0); MEAN CORPUSCULAR HGB CONC 30.8 g/dl (32.0-36.5); MEAN CORPUSCULAR VOLUME 99.1 fl (80.0-96.0); MONO # 0.6 10^3/uL (0.0-0.8); MONO % 11.3 % (2.0-8.0); NEUTROPHILS # 2.8 10^3/uL (1.5-8.5); NEUTROPHILS % 57.8 % (36.0-66.0); PLATELET COUNT, AUTOMATED 332 10^3/uL (150-450); RED BLOOD COUNT 3.31 10^6/uL (4.00-5.40); WHITE BLOOD COUNT 4.9 10^3/uL (4.0-10.0)
[2021-10-28 08:14] LABS: CREATININE FOR GFR 1.03 MG/DL (0.55-1.30); GLOMERULAR FILTRATION RATE 54.6 (>32); MAGNESIUM LEVEL 1.6 MG/DL (1.8-2.4); POTASSIUM SERUM 4.6 MEQ/L (3.5-5.1)
[2021-10-28] MEDS: guaiFENesin 200 MG TAB PO SCH ×3 (08:58→20:17)
[2021-10-28] MEDS: MAGNESIUM OXIDE 400MG TAB (MAG-OX) PO SCH ×2 (08:58→20:17)
[2021-10-28] MEDS: APIXABAN 2.5 MG TAB (ELIQUIS) PO SCH ×2 (08:58→20:16)
[2021-10-28] MEDS: LACTOBACILLUS ACIDOPHILUS CAP (BACID) PO SCH ×4 (08:58→20:16)
[2021-10-28] MEDS: CARVedilol 12.5 MG TAB PO SCH ×2 (08:59→20:16)
[2021-10-28] MEDS: REMEDY PHYTOPLEX Z-GUARD PASTE 113GM TUBE (FROM STOREROOM PRODUCT) TOP SCH ×3 (09:00→19:39)
[2021-10-28] MEDS: ACETAMINOPHEN 500 MG TAB PO SCH ×3 (09:00→20:17)
[2021-10-28] MEDS: DOCUSATE SODIUM 100MG CAPSULE PO SCH ×2 (09:00→19:36)
[2021-10-28 14:00] VITALS: BP 140/60
[2021-10-28] MEDS ORDERED: NORCO, ANEXSIA 5/325MG TABLET (HYDROcodone/ACETAMINOPHEN) PO ONE (16:10)
[2021-10-28] MEDS: SENNA 8.6 MG TAB (SENOKOT) PO SCH (19:36)
[2021-10-28 20:00] VITALS: BP 156/66
[2021-10-28] MEDS: ATORVASTATIN 10 MG TAB PO SCH (20:16)
[2021-10-28] MEDS: RAMELTEON 8 MG TAB (ROZEREM) PO PRN (20:16)
[2021-10-28] MEDS: ASPIRIN 81MG ENTERIC TABLET PO SCH (20:17)
[2021-10-28] MEDS: OMEPRAZOLE 20MG CAP PO SCH (20:17)
[2021-10-28] MEDS ORDERED: NORCO, ANEXSIA 5/325MG TABLET (HYDROcodone/ACETAMINOPHEN) PO PRN (22:00)
[2021-10-29 06:00] VITALS: BP 122/70
[2021-10-29] MEDS: COMBIVENT RESPIMAT 100-20MCG INHALER 4GM INH SCH ×2 (08:00→11:45)
[2021-10-29] MEDS: SYMBICORT 160/4.5MCG INHALER 6GM INH SCH (08:10)
[2021-10-29] MEDS ORDERED: MAGN400T2 PO (08:56)
[2021-10-29] MEDS ORDERED: AMLO1TAB25 PO (08:56)
[2021-10-29] MEDS ORDERED: ATOR1TAB19 PO (08:56)
[2021-10-29] MEDS ORDERED: ELIQ2.5T PO (08:56)
[2021-10-29] MEDS ORDERED: SYMB16INH INH (08:56)
[2021-10-29] MEDS ORDERED: OMEP40CA4 PO (08:56)
[2021-10-29] MEDS ORDERED: INCR1INH INH (08:56)
[2021-10-29] MEDS ORDERED: CARV12.5 PO (08:56)
[2021-10-29] MEDS ORDERED: LISI10TA22 PO (08:56)
[2021-10-29] MEDS ORDERED: NITR4TASL SL (08:56)
[2021-10-29] MEDS ORDERED: ASPI81TA26 PO (08:56)
[2021-10-29] MEDS: REMEDY PHYTOPLEX Z-GUARD PASTE 113GM TUBE (FROM STOREROOM PRODUCT) TOP SCH (09:00)
[2021-10-29] MEDS: DOCUSATE SODIUM 100MG CAPSULE PO SCH (09:00)
[2021-10-29] MEDS: ACETAMINOPHEN 500 MG TAB PO SCH (09:00)
[2021-10-29] MEDS: MAGNESIUM OXIDE 400MG TAB (MAG-OX) PO SCH (09:24)
[2021-10-29 09:25] VITALS: BP 122/70
[2021-10-29] MEDS: APIXABAN 2.5 MG TAB (ELIQUIS) PO SCH (09:25)
[2021-10-29] MEDS: CARVedilol 12.5 MG TAB PO SCH (09:25)
[2021-10-29] MEDS: LACTOBACILLUS ACIDOPHILUS CAP (BACID) PO SCH ×2 (09:25→13:18)
[2021-10-29] MEDS: guaiFENesin 200 MG TAB PO SCH (09:25)
== END 2021-10-29 14:35 | disposition home or self-care (01) | DRG 551 ==
LOC: M PM&R 16:25
PROVIDERS: ADMIT Physical Medicine & Rehabilitation; ATTEND Physical Medicine & Rehabilitation
DX: M48.02 Spinal stenosis, cervical region (principal); J18.9 Pneumonia, unspecified organism; E87.0 Hyperosmolality and hypernatremia; J44.0 Chronic obstructive pulmonary disease with (acute) lower respiratory infection; I50.32 Chronic diastolic (congestive) heart failure; I25.10 Atherosclerotic heart disease of native coronary artery without angina pectoris; I11.0 Hypertensive heart disease with heart failure; E78.5 Hyperlipidemia, unspecified; K21.9 Gastro-esophageal reflux disease without esophagitis; R53.1 Weakness; G89.29 Other chronic pain; M47.812 Spondylosis without myelopathy or radiculopathy, cervical region; R26.89 Other abnormalities of gait and mobility; I48.91 Unspecified atrial fibrillation; R06.02 Shortness of breath; M54.50 Low back pain, unspecified; E83.42 Hypomagnesemia; Z66 Do not resuscitate; Z74.09 Other reduced mobility; Z74.1 Need for assistance with personal care; Z90.49 Acquired absence of other specified parts of digestive tract; Z87.891 Personal history of nicotine dependence; Z79.01 Long term (current) use of anticoagulants; Z79.82 Long term (current) use of aspirin; Z79.899 Other long term (current) drug therapy; Z88.5 Allergy status to narcotic agent; Z88.8 Allergy status to other drugs, medicaments and biological substances

== ENCOUNTER → 2021-11-06 | Outpatient (CLI) | payer MEDICARE, BC, OTHER ==
[~2021-11-06] MED LIST changes: +AMLO1TAB25 PO; +LISI10TA22 PO; +MAGN400T2 PO
[2021-11-06 16:15] LABS: BASO # 0.1 10^3/uL (0.0-0.2); BASO % 1.1 % (0.0-1.0); EOS # 0.2 10^3/uL (0.0-0.5); EOS % 2.7 % (0.0-3.0); HEMATOCRIT 30.3 % (36.0-47.0); HEMOGLOBIN 9.4 g/dl (12.0-15.5); LYMPH # 1.8 10^3/uL (1.5-5.0); LYMPH % 26.3 % (24.0-44.0); MEAN CORPUSCULAR HEMOGLOBIN 31.3 pg (27.0-33.0); MONO # 0.7 10^3/uL (0.0-0.8); MONO % 9.7 % (2.0-8.0); NEUTROPHILS # 4.2 10^3/uL (1.5-8.5); NEUTROPHILS % 59.9 % (36.0-66.0); PLATELET COUNT, AUTOMATED 267 10^3/uL (150-450)
[2021-11-06 16:40] LABS: ALBUMIN 3.4 GM/DL (3.2-5.2); BILIRUBIN,TOTAL 0.4 MG/DL (0.2-1.0); CALCIUM LEVEL 9.8 MG/DL (8.8-10.2); CREATININE FOR GFR 1.25 MG/DL (0.55-1.30); GLOMERULAR FILTRATION RATE 43.7 (>32); POTASSIUM SERUM 4.7 MEQ/L (3.5-5.1); TOTAL PROTEIN 6.2 GM/DL (6.4-8.2)
== END ==
LOC: M WUC 11:30
PROVIDERS: ATTEND Nurse Practitioner Family
DX: I48.91 Unspecified atrial fibrillation (principal); I10 Essential (primary) hypertension; J18.9 Pneumonia, unspecified organism

== ENCOUNTER → 2021-11-12 | Outpatient (CLI) | payer MEDICARE, OTHER ==
[2021-11-12 16:00] LABS: IRON (FE) 180 UG/DL (50-170); NT-PRO BNP 419 PG/ML (<450)
== END ==
LOC: M WUC 11:03
PROVIDERS: ATTEND Physician Assistant
DX: R06.02 Shortness of breath (principal)

== ENCOUNTER → 2021-11-20 | Outpatient (CLI) | payer MEDICARE, OTHER ==
[2021-11-20 12:42] LABS: HEMATOCRIT 32.6 % (36.0-47.0); HEMOGLOBIN 10.3 g/dl (12.0-15.5); MEAN CORPUSCULAR HEMOGLOBIN 31.7 pg (27.0-33.0); MEAN CORPUSCULAR HGB CONC 31.6 g/dl (32.0-36.5); MEAN CORPUSCULAR VOLUME 100.3 fl (80.0-96.0); PLATELET COUNT, AUTOMATED 218 10^3/uL (150-450); RED BLOOD COUNT 3.25 10^6/uL (4.00-5.40); WHITE BLOOD COUNT 5.8 10^3/uL (4.0-10.0)
[2021-11-20 15:02] LABS: VITAMIN B12 LEVEL 197 PG/ML (247-911)
== END ==
LOC: M WUC 10:26
PROVIDERS: ATTEND Physician Assistant
DX: D64.9 Anemia, unspecified (principal); Z79.899 Other long term (current) drug therapy

== ENCOUNTER → 2021-11-20 | Outpatient (CLI) | payer MEDICARE, OTHER ==
[2021-11-20 12:43] LABS: BASO # 0.1 10^3/uL (0.0-0.2); BASO % 0.9 % (0.0-1.0); EOS # 0.1 10^3/uL (0.0-0.5); EOS % 2.4 % (0.0-3.0); HEMATOCRIT 32.9 % (36.0-47.0); HEMOGLOBIN 10.2 g/dl (12.0-15.5); LYMPH # 1.7 10^3/uL (1.5-5.0); LYMPH % 31.3 % (24.0-44.0); MEAN CORPUSCULAR HEMOGLOBIN 31.8 pg (27.0-33.0); MEAN CORPUSCULAR VOLUME 102.5 fl (80.0-96.0); MONO # 0.6 10^3/uL (0.0-0.8); MONO % 10.1 % (2.0-8.0); NEUTROPHILS # 3.1 10^3/uL (1.5-8.5); NEUTROPHILS % 55.1 % (36.0-66.0); PLATELET COUNT, AUTOMATED 219 10^3/uL (150-450); RED BLOOD COUNT 3.21 10^6/uL (4.00-5.40); WHITE BLOOD COUNT 5.5 10^3/uL (4.0-10.0)
== END ==
LOC: M WUC 10:18
PROVIDERS: ATTEND Nurse Practitioner Family
DX: D64.9 Anemia, unspecified (principal)

== ENCOUNTER → 2021-12-07 | Outpatient (CLI) | payer MEDICARE, OTHER | LOC: M WUC 10:30 | PROVIDERS: ATTEND Internal Medicine Pulmonary Disease | DX: J44.1 Chronic obstructive pulmonary disease with (acute) exacerbation (principal) ==

== ENCOUNTER → 2022-02-16 | Outpatient (CLI) | payer MEDICARE, OTHER ==
[~2022-02-16] MED LIST changes: +ALBU2.5V10 INH; -ALBU83IN INH
== END ==
LOC: M WUC 11:25
PROVIDERS: ATTEND Nurse Practitioner Family
DX: M54.6 Pain in thoracic spine (principal); M54.50 Low back pain, unspecified

== ENCOUNTER → 2022-03-30 | Outpatient (REF) | payer MEDICARE, OTHER | LOC: M LAB REF 16:55 | PROVIDERS: ATTEND Nurse Practitioner Family | DX: N39.0 Urinary tract infection, site not specified (principal); R30.0 Dysuria ==

== ENCOUNTER → 2022-04-12 | Outpatient (CLI) | payer MEDICARE, OTHER ==
[2022-04-12 12:16] LABS: BASO # 0.1 10^3/uL (0.0-0.2); BASO % 1.1 % (0.0-1.0); EOS # 0.2 10^3/uL (0.0-0.5); EOS % 3.2 % (0.0-3.0); HEMATOCRIT 33.2 % (36.0-47.0); HEMOGLOBIN 10.7 g/dl (12.0-15.5); LYMPH # 2.2 10^3/uL (1.5-5.0); LYMPH % 41.4 % (24.0-44.0); MEAN CORPUSCULAR HEMOGLOBIN 31.4 pg (27.0-33.0); MEAN CORPUSCULAR HGB CONC 32.2 g/dl (32.0-36.5); MEAN CORPUSCULAR VOLUME 97.4 fl (80.0-96.0); MONO # 0.6 10^3/uL (0.0-0.8); MONO % 10.9 % (2.0-8.0); NEUTROPHILS # 2.3 10^3/uL (1.5-8.5); NEUTROPHILS % 43.2 % (36.0-66.0); PLATELET COUNT, AUTOMATED 210 10^3/uL (150-450); RED BLOOD COUNT 3.41 10^6/uL (4.00-5.40); WHITE BLOOD COUNT 5.2 10^3/uL (4.0-10.0)
[2022-04-12 13:22] LABS: ALBUMIN 3.5 GM/DL (3.2-5.2); BILIRUBIN,TOTAL 0.5 MG/DL (0.2-1.0); CALCIUM LEVEL 9.1 MG/DL (8.8-10.2); CREATININE FOR GFR 1.54 MG/DL (0.55-1.30); GLOMERULAR FILTRATION RATE 34.2 (>32); POTASSIUM SERUM 4.6 MEQ/L (3.5-5.1); TOTAL PROTEIN 6.3 GM/DL (6.4-8.2)
== END ==
LOC: M WUC 08:48
PROVIDERS: ATTEND Nurse Practitioner Family
DX: J44.9 Chronic obstructive pulmonary disease, unspecified (principal); I25.10 Atherosclerotic heart disease of native coronary artery without angina pectoris

== ENCOUNTER → 2022-09-17 | Outpatient (REF) | payer MEDICARE, OTHER | LOC: M LAB REF 14:11 | PROVIDERS: ATTEND Surgery | DX: L72.0 Epidermal cyst (principal) ==

== ENCOUNTER → 2022-12-20 | Outpatient (REF) | payer MEDICARE, OTHER | LOC: M LAB REF 17:20 | PROVIDERS: ATTEND Nurse Practitioner Family | DX: R35.0 Frequency of micturition (principal); R60.0 Localized edema ==

== ENCOUNTER → 2023-01-03 | Outpatient (CLI) | payer MEDICARE, OTHER ==
[2023-01-03 11:09] LABS: BASO # 0.1 10^3/uL (0.0-0.2); BASO % 1.2 % (0.0-1.0); EOS # 0.1 10^3/uL (0.0-0.5); EOS % 2.8 % (0.0-3.0); HEMATOCRIT 36.1 % (36.0-47.0); HEMOGLOBIN 11.2 g/dl (12.0-15.5); LYMPH # 1.7 10^3/uL (1.5-5.0); LYMPH % 33.9 % (24.0-44.0); MEAN CORPUSCULAR HEMOGLOBIN 30.7 pg (27.0-33.0); MEAN CORPUSCULAR VOLUME 98.9 fl (80.0-96.0); MONO # 0.5 10^3/uL (0.0-0.8); MONO % 10.7 % (2.0-8.0); NEUTROPHILS # 2.6 10^3/uL (1.5-8.5); NEUTROPHILS % 51.2 % (36.0-66.0); PLATELET COUNT, AUTOMATED 215 10^3/uL (150-450); RED BLOOD COUNT 3.65 10^6/uL (4.00-5.40); WHITE BLOOD COUNT 5.1 10^3/uL (4.0-10.0)
[2023-01-03 11:45] LABS: ALBUMIN 3.9 G/DL (3.2-5.2); BILIRUBIN,TOTAL 0.6 MG/DL (0.3-1.2); CREATININE FOR GFR 1.71 MG/DL (0.55-1.30); GLOMERULAR FILTRATION RATE 30.3 (>32); MAGNESIUM LEVEL 1.6 MG/DL (1.8-2.4); POTASSIUM SERUM 4.5 MMOL/L (3.5-5.1); TOTAL PROTEIN 6.3 G/DL (5.7-8.2)
[2023-01-03 11:48] LABS: THYROID STIMULATING HORMONE 1.187 uIU/ML (0.55-4.78)
[2023-01-03 11:49] LABS: FREE T4 1.19 NG/DL (0.89-1.76)
== END ==
LOC: M WUC 08:15
PROVIDERS: ATTEND Nurse Practitioner Family
DX: R60.0 Localized edema (principal)

== ENCOUNTER → 2023-03-09 | Outpatient (CLI) | payer MEDICARE, BC, OTHER | LOC: M RAD 09:12 | PROVIDERS: ATTEND Internal Medicine Nephrology | DX: N18.32 Chronic kidney disease, stage 3b (principal) ==

== ENCOUNTER → 2023-03-28 | Outpatient (CLI) | payer MEDICARE, BC, OTHER | LOC: M RAD 12:41 | PROVIDERS: ATTEND Internal Medicine Pulmonary Disease | DX: R60.9 Edema, unspecified (principal) ==

== ENCOUNTER 2023-04-02 17:27 | Inpatient (IN) | payer MEDICARE, BC, OTHER ==
[~2023-04-02] VITALS: Ht 154.9 cm; Wt 67.5 kg
[2023-04-02 18:19] LABS: BASO # 0.1 10^3/uL (0.0-0.2); BASO % 0.5 % (0.0-1.0); EOS % 0.1 % (0.0-3.0); HEMATOCRIT 35.2 % (36.0-47.0); HEMOGLOBIN 11.7 g/dl (12.0-15.5); LYMPH # 0.9 10^3/uL (1.5-5.0); LYMPH % 7.4 % (24.0-44.0); MEAN CORPUSCULAR HEMOGLOBIN 31.9 pg (27.0-33.0); MEAN CORPUSCULAR HGB CONC 33.2 g/dl (32.0-36.5); MEAN CORPUSCULAR VOLUME 95.9 fl (80.0-96.0); MONO # 1.2 10^3/uL (0.0-0.8); MONO % 10.2 % (2.0-8.0); NEUTROPHILS # 9.8 10^3/uL (1.5-8.5); NEUTROPHILS % 81.4 % (36.0-66.0); PLATELET COUNT, AUTOMATED 204 10^3/uL (150-450); RED BLOOD COUNT 3.67 10^6/uL (4.00-5.40)
[2023-04-02 18:45] LABS: MB/CK RELATIVE INDEX 0.95 (< OR =4)
[2023-04-02 18:46] LABS: ALBUMIN 3.3 G/DL (3.2-5.2); ALKALINE PHOSPHATASE 80 U/L (46-116); ALT/SGPT 17 U/L (7.0-40); AST/SGOT 14 U/L (<34); BILIRUBIN,DIRECT 0.3 MG/DL (<0.4); BILIRUBIN,TOTAL 0.7 MG/DL (0.3-1.2); BLOOD UREA NITROGEN 18 MG/DL (9-23); CALCIUM LEVEL 8.5 MG/DL (8.3-10.6); CARBON DIOXIDE LEVEL 27 MMOL/L (20-31); CHLORIDE LEVEL 103 MMOL/L (98-107); CK-MB VALUE MASS < 1.0 NG/ML (<3.6); CREATININE FOR GFR 1.43 MG/DL (0.55-1.30); GLOMERULAR FILTRATION RATE 37.2 (>32); GLUCOSE, FASTING 112 MG/DL (74-106); POTASSIUM SERUM 3.4 MMOL/L (3.5-5.1); SODIUM LEVEL 141 MMOL/L (136-145); TOTAL PROTEIN 6.2 G/DL (5.7-8.2)
[2023-04-02 18:47] LABS: CPK CREATINE PHOSPHOKINASE 112 U/L (34-145); MB/CK RELATIVE INDEX 0.89 (< OR =4)
[2023-04-02 18:48] LABS: THYROID STIMULATING HORMONE 0.864 uIU/ML (0.55-4.78); THYROXINE (T4) 10.3 UG/DL (4.5-10.9)
[2023-04-02] MEDS ORDERED: ISOVUE-370 76% 100ML VIAL As Ordered ONE (20:07)
[2023-04-02] MEDS ORDERED: cefTRIAXone SOD 1 GM in D5W MINI-BAG PLUS 50 ML IV ONE (20:30)
[2023-04-02] MEDS ORDERED: AZITHROMYCIN 250MG TABLET PO ONE (20:30)
[2023-04-02] MEDS ORDERED: dexAMETHasone 20MG/5ML VIAL IV ONE (20:30)
[2023-04-02] MEDS ORDERED: ATOR1TAB19 PO (22:04)
[2023-04-02] MEDS ORDERED: FOLI1TAB11 PO (22:10)
[2023-04-02] MEDS ORDERED: FURO20TA2 PO (22:10)
[2023-04-02] MEDS ORDERED: MYRB25TA PO (22:10)
[2023-04-02] MEDS ORDERED: HYDR-3719 PO (22:10)
[2023-04-02] MEDS ORDERED: METO1TAB32 PO (22:10)
[2023-04-02] MEDS ORDERED: PANT40TA29 PO (22:10)
[2023-04-02] MEDS ORDERED: ASPI81TA26 PO (22:10)
[2023-04-02] MEDS ORDERED: SYMB16INH INH (22:10)
[2023-04-02] MEDS ORDERED: ERGO500029 PO (22:10)
[2023-04-02] MEDS ORDERED: HYDR10TAB PO (22:10)
[2023-04-02] MEDS ORDERED: ALBU8.5H PO (22:10)
[2023-04-02] MEDS ORDERED: AMLO1TAB24 PO (22:10)
[2023-04-02] MEDS ORDERED: MAGN400T35 PO (22:10)
[2023-04-02] MEDS ORDERED: INCR1INH INH (22:10)
[2023-04-02] MEDS ORDERED: HOME MED LIST COMPLETE! XX SCH (22:15)
[2023-04-02] MEDS ORDERED: cefTRIAXone SOD 1GM VIAL IM SCH (22:20)
[2023-04-02] MEDS ORDERED: ALBUTEROL SULFATE 2.5MG/0.5ML INH NEB SOLN INH PRN (22:20)
[2023-04-02] MEDS ORDERED: MAALOX 30 ML SUSP *UDC PO PRN (22:20)
[2023-04-02] MEDS ORDERED: ALBUTEROL 90 MCG/ACT 8GM HFA INHALER INH PRN (22:20)
[2023-04-02] MEDS ORDERED: MOM 30ML SUSPENSION UDC PO PRN (22:20)
[2023-04-02] MEDS ORDERED: METOPROLOL SUCC *XL* 25MG TAB (TopROL *XL*) PO SCH (23:05)
[2023-04-02] MEDS ORDERED: METOPROLOL TART 25 MG TABLET PO ONE (23:30)
[2023-04-02] MEDS ORDERED: POTASSIUM CHLORIDE 10% LIQ 20MEQ/15ML UDC PO ONE (23:30)
[2023-04-02 23:35] LABS: PROCALCITONIN 0.06 ng/ml
[2023-04-02 23:40] VITALS: BP 141/63; TEMP 99.6; O2SAT 95
[2023-04-03] VITALS (7 sets, daily range): BP systolic 115–124; BP diastolic 50–55; TEMP 96.8–97.7; O2SAT 88–95
[2023-04-03] MEDS ORDERED: HEPARIN SOD (PORCINE) 5000UNITS/ML 1ML VIAL/SYRINGE SC SCH (06:00)
[2023-04-03] MEDS ORDERED: IPRATROPIUM HFA INHALER 12.9 GRAMS (ATROVENT HFA) INH SCH (08:00)
[2023-04-03] MEDS: SYMBICORT 160/4.5MCG INHALER 6GM INH SCH ×2 (08:07→19:34)
[2023-04-03] MEDS: TIOTROPIUM INHALER/CAPSULE (SPIRIVA) INH SCH (08:23)
[2023-04-03 08:24] LABS: BASO % 0.2 % (0.0-1.0); HEMOGLOBIN 11.4 g/dl (12.0-15.5); LYMPH # 0.5 10^3/uL (1.5-5.0); LYMPH % 4.6 % (24.0-44.0); MEAN CORPUSCULAR HEMOGLOBIN 31.5 pg (27.0-33.0); MEAN CORPUSCULAR HGB CONC 32.6 g/dl (32.0-36.5); MEAN CORPUSCULAR VOLUME 96.7 fl (80.0-96.0); MONO # 0.3 10^3/uL (0.0-0.8); MONO % 2.6 % (2.0-8.0); NEUTROPHILS # 9.6 10^3/uL (1.5-8.5); NEUTROPHILS % 92.2 % (36.0-66.0); PLATELET COUNT, AUTOMATED 197 10^3/uL (150-450); RED BLOOD COUNT 3.62 10^6/uL (4.00-5.40); WHITE BLOOD COUNT 10.4 10^3/uL (4.0-10.0)
[2023-04-03] MEDS: ALBUTEROL SULFATE 2.5MG/0.5ML INH NEB SOLN INH SCH ×5 (08:24→23:07)
[2023-04-03] MEDS: predniSONE 20 MG TAB PO SCH (08:25)
[2023-04-03] MEDS: amLODIPine 5 MG TAB PO SCH (08:25)
[2023-04-03] MEDS: PANTOPRAZOLE 40MG TAB (PROTONIX) PO SCH (08:26)
[2023-04-03 08:41] LABS: CALCIUM LEVEL 8.3 MG/DL (8.3-10.6); CREATININE FOR GFR 1.43 MG/DL (0.55-1.30); GLOMERULAR FILTRATION RATE 37.2 (>32); POTASSIUM SERUM 3.9 MMOL/L (3.5-5.1)
[2023-04-03] MEDS ORDERED: FUROSEMIDE 20 MG TAB PO SCH (09:00)
[2023-04-03] MEDS ORDERED: **hydrALAZINE** 10 MG TAB PO SCH (09:00)
[2023-04-03] MEDS ORDERED: ONDANSETRON 4MG 2ML VIAL IV PRN (14:20)
[2023-04-03] MEDS: HEPARIN SOD (PORCINE) 5000UNITS/ML 1ML VIAL/SYRINGE SC SCH (20:22)
[2023-04-03] MEDS: METOPROLOL SUCC *XL* 25MG TAB (TopROL *XL*) PO SCH (20:23)
[2023-04-03] MEDS: ASPIRIN 81MG ENTERIC TABLET PO SCH (20:23)
[2023-04-03] MEDS: AZITHROMYCIN 250MG TABLET PO SCH (20:23)
[2023-04-03] MEDS: ATORVASTATIN 10 MG TAB PO SCH (20:23)
[2023-04-03] MEDS: FOLIC ACID 1MG TAB PO SCH (20:23)
[2023-04-03] MEDS: ACETAMINOPHEN TAB 650MG DOSE (2X325MG) PO PRN (20:24)
[2023-04-03] MEDS: cefTRIAXone SOD 1 GM in D5W MINI-BAG PLUS 50 ML IV SCH (20:25)
[2023-04-04 02:00] VITALS: BP 118/53; TEMP 97.3; O2SAT 92
[2023-04-04] MEDS: ALBUTEROL SULFATE 2.5MG/0.5ML INH NEB SOLN INH SCH ×6 (04:18→23:43)
[2023-04-04 04:40] VITALS: BP 118/53; TEMP 97.5; O2SAT 92
[2023-04-04 06:26] LABS: BASO % 0.2 % (0.0-1.0); HEMATOCRIT 31.6 % (36.0-47.0); HEMOGLOBIN 10.4 g/dl (12.0-15.5); LYMPH # 0.8 10^3/uL (1.5-5.0); LYMPH % 5.8 % (24.0-44.0); MEAN CORPUSCULAR HEMOGLOBIN 31.6 pg (27.0-33.0); MEAN CORPUSCULAR HGB CONC 32.9 g/dl (32.0-36.5); MONO # 1.4 10^3/uL (0.0-0.8); MONO % 9.8 % (2.0-8.0); NEUTROPHILS # 11.9 10^3/uL (1.5-8.5); NEUTROPHILS % 83.6 % (36.0-66.0); PLATELET COUNT, AUTOMATED 218 10^3/uL (150-450); RED BLOOD COUNT 3.29 10^6/uL (4.00-5.40); WHITE BLOOD COUNT 14.3 10^3/uL (4.0-10.0)
[2023-04-04 06:55] LABS: CALCIUM LEVEL 8.5 MG/DL (8.3-10.6); CREATININE FOR GFR 1.96 MG/DL (0.55-1.30); GLOMERULAR FILTRATION RATE 25.9 (>32); POTASSIUM SERUM 3.7 MMOL/L (3.5-5.1)
[2023-04-04] MEDS: SYMBICORT 160/4.5MCG INHALER 6GM INH SCH ×2 (07:18→19:21)
[2023-04-04] MEDS: TIOTROPIUM INHALER/CAPSULE (SPIRIVA) INH SCH (07:18)
[2023-04-04] MEDS ORDERED: LR 1,000 ML IV ONE (07:25)
[2023-04-04] MEDS: predniSONE 20 MG TAB PO SCH (09:29)
[2023-04-04] MEDS: HEPARIN SOD (PORCINE) 5000UNITS/ML 1ML VIAL/SYRINGE SC SCH ×2 (09:29→20:13)
[2023-04-04] MEDS: PANTOPRAZOLE 40MG TAB (PROTONIX) PO SCH (09:30)
[2023-04-04] MEDS: amLODIPine 5 MG TAB PO SCH (09:30)
[2023-04-04 10:00] VITALS: BP 123/56; TEMP 97.9; O2SAT 94
[2023-04-04 14:00] VITALS: BP 122/56; TEMP 97.7; O2SAT 90
[2023-04-04 20:00] VITALS: BP 140/67; TEMP 97.5; O2SAT 93
[2023-04-04] MEDS: cefTRIAXone SOD 1 GM in D5W MINI-BAG PLUS 50 ML IV SCH (20:05)
[2023-04-04] MEDS: FOLIC ACID 1MG TAB PO SCH (20:10)
[2023-04-04] MEDS: AZITHROMYCIN 250MG TABLET PO SCH (20:10)
[2023-04-04] MEDS: ASPIRIN 81MG ENTERIC TABLET PO SCH (20:11)
[2023-04-04] MEDS: ATORVASTATIN 10 MG TAB PO SCH (20:11)
[2023-04-04] MEDS: METOPROLOL SUCC *XL* 25MG TAB (TopROL *XL*) PO SCH (20:13)
[2023-04-04] MEDS: ACETAMINOPHEN TAB 650MG DOSE (2X325MG) PO PRN (20:16)
[2023-04-04 22:00] VITALS: BP 140/67; TEMP 97.5; O2SAT 93
[2023-04-05 02:00] VITALS: BP 114/60; TEMP 97.5; O2SAT 94
[2023-04-05] MEDS: ALBUTEROL SULFATE 2.5MG/0.5ML INH NEB SOLN INH SCH ×2 (03:09→07:28)
[2023-04-05 06:00] VITALS: BP 115/59; TEMP 97.3; O2SAT 91
[2023-04-05 06:07] LABS: HEMATOCRIT 30.5 % (36.0-47.0); HEMOGLOBIN 9.9 g/dl (12.0-15.5); LYMPH # 1.1 10^3/uL (1.5-5.0); LYMPH % 10.8 % (24.0-44.0); MEAN CORPUSCULAR HEMOGLOBIN 31.5 pg (27.0-33.0); MEAN CORPUSCULAR HGB CONC 32.5 g/dl (32.0-36.5); MEAN CORPUSCULAR VOLUME 97.1 fl (80.0-96.0); MONO # 0.9 10^3/uL (0.0-0.8); MONO % 8.5 % (2.0-8.0); NEUTROPHILS # 8.1 10^3/uL (1.5-8.5); NEUTROPHILS % 80.1 % (36.0-66.0); PLATELET COUNT, AUTOMATED 215 10^3/uL (150-450); RED BLOOD COUNT 3.14 10^6/uL (4.00-5.40); WHITE BLOOD COUNT 10.1 10^3/uL (4.0-10.0)
[2023-04-05 06:44] LABS: CALCIUM LEVEL 8.4 MG/DL (8.3-10.6); CREATININE FOR GFR 1.51 MG/DL (0.55-1.30); POTASSIUM SERUM 3.9 MMOL/L (3.5-5.1)
[2023-04-05] MEDS: SYMBICORT 160/4.5MCG INHALER 6GM INH SCH (07:29)
[2023-04-05] MEDS: TIOTROPIUM INHALER/CAPSULE (SPIRIVA) INH SCH (07:29)
[2023-04-05 09:45] VITALS: BP 128/62
[2023-04-05] MEDS: predniSONE 20 MG TAB PO SCH (09:45)
[2023-04-05] MEDS: HEPARIN SOD (PORCINE) 5000UNITS/ML 1ML VIAL/SYRINGE SC SCH (09:45)
[2023-04-05] MEDS: amLODIPine 5 MG TAB PO SCH (09:45)
[2023-04-05] MEDS: PANTOPRAZOLE 40MG TAB (PROTONIX) PO SCH (09:45)
[2023-04-05] MEDS: ACETAMINOPHEN TAB 650MG DOSE (2X325MG) PO PRN (09:49)
[2023-04-05 09:53] VITALS: BP 126/62; TEMP 97.7; O2SAT 91
[2023-04-05] MEDS ORDERED: PRED20TA PO (10:05)
[2023-04-05] MEDS ORDERED: AMOX875T2 PO (10:05)
[2023-04-07 16:08] LABS: BODY FLUID CULTURE Not indicated. (.); LEGIONELLA ANTIGEN URINE Negative (Negative); ORGANISM ID Not indicated. (.); SPECIMEN SOURCE Urine (.); URINE STREP PNEUMONIAE ANTIGEN Negative (Negative)
== END 2023-04-05 14:09 | disposition home or self-care (01) | DRG 193 ==
LOC: M ED 17:27 → EDBD 17:27 → M ED INP 22:16 → M MSPAV 23:43
PROVIDERS: ADMIT Internal Medicine; ATTEND Student in an Organized Health Care Education/Training Program
DX: J18.9 Pneumonia, unspecified organism (principal); J96.21 Acute and chronic respiratory failure with hypoxia; J44.0 Chronic obstructive pulmonary disease with (acute) lower respiratory infection; J44.1 Chronic obstructive pulmonary disease with (acute) exacerbation; N17.9 Acute kidney failure, unspecified; I25.10 Atherosclerotic heart disease of native coronary artery without angina pectoris; J45.909 Unspecified asthma, uncomplicated; I12.9 Hypertensive chronic kidney disease with stage 1 through stage 4 chronic kidney disease, or unspecified chronic kidney disease; E78.5 Hyperlipidemia, unspecified; K21.9 Gastro-esophageal reflux disease without esophagitis; I48.0 Paroxysmal atrial fibrillation; R10.9 Unspecified abdominal pain; R11.10 Vomiting, unspecified; M54.50 Low back pain, unspecified; G89.29 Other chronic pain; E87.6 Hypokalemia; N18.30 Chronic kidney disease, stage 3 unspecified; Z88.8 Allergy status to other drugs, medicaments and biological substances; Z66 Do not resuscitate; Z79.82 Long term (current) use of aspirin; Z79.899 Other long term (current) drug therapy; Z88.5 Allergy status to narcotic agent; Z90.49 Acquired absence of other specified parts of digestive tract; Z87.891 Personal history of nicotine dependence

== ENCOUNTER → 2023-05-18 | Outpatient (CLI) | payer MEDICARE, BC, OTHER ==
[~2023-05-18] MED LIST changes: +ALBU8.5H PO; +AMOX875T2 PO; +ERGO500029 PO; +FOLI1TAB11 PO; +FURO20TA2 PO; +HYDR10TAB PO; +MAGN400T35 PO; +METO1TAB32 PO; +MYRB25TA PO; +PANT40TA29 PO
== END ==
LOC: M PLAIMG 10:40
PROVIDERS: ATTEND Physician Assistant
DX: R91.8 Other nonspecific abnormal finding of lung field (principal)

== ENCOUNTER → 2023-06-01 | Outpatient (REF) | payer MEDICARE, BC, OTHER ==
[2023-06-01 18:28] LABS: CHOLESTEROL RISK RATIO 2.74 (<5); HDL CHOLESTEROL 52.1 MG/DL (>40); LDL CHOLESTEROL 67.3 MG/DL (<100); NON-HDL-C 90.9 MG/DL
== END ==
LOC: M LABWUC 16:21
PROVIDERS: ATTEND Nurse Practitioner Family
DX: I25.10 Atherosclerotic heart disease of native coronary artery without angina pectoris (principal)

== ENCOUNTER → 2023-11-22 | Outpatient (REF) | payer MEDICARE, OTHER ==
[~2023-11-22] MED LIST changes: +HYDR-161 PO; -HYDR10TAB PO; +RAMI10CA64 PO; -RAMI1CAP24 PO; -RAMI1CAP26 PO; +RAMI5CAP60 PO
== END ==
LOC: M LAB REF 16:55
PROVIDERS: ATTEND Registered Nurse
DX: M54.50 Low back pain, unspecified (principal)

== ENCOUNTER → 2024-01-04 | Outpatient (CLI) | payer MEDICARE, OTHER ==
[2024-01-04 11:00] LABS: BASO # 0.1 10^3/uL (0.0-0.2); BASO % 1.2 % (0.0-1.0); EOS # 0.2 10^3/uL (0.0-0.5); HEMATOCRIT 37.6 % (36.0-47.0); HEMOGLOBIN 12.3 g/dl (12.0-15.5); LYMPH # 1.9 10^3/uL (1.5-5.0); LYMPH % 33.9 % (24.0-44.0); MEAN CORPUSCULAR HEMOGLOBIN 32.3 pg (27.0-33.0); MEAN CORPUSCULAR HGB CONC 32.7 g/dl (32.0-36.5); MEAN CORPUSCULAR VOLUME 98.7 fl (80.0-96.0); MONO # 0.7 10^3/uL (0.0-0.8); MONO % 12.5 % (2.0-8.0); NEUTROPHILS # 2.8 10^3/uL (1.5-8.5); NEUTROPHILS % 48.2 % (36.0-66.0); PLATELET COUNT, AUTOMATED 208 10^3/uL (150-450); RED BLOOD COUNT 3.81 10^6/uL (4.00-5.40); WHITE BLOOD COUNT 5.7 10^3/uL (4.0-10.0)
[2024-01-04 11:10] LABS: ALBUMIN 3.4 G/DL (3.2-5.2); BILIRUBIN,TOTAL 0.4 MG/DL (0.3-1.2); CALCIUM LEVEL 9.6 MG/DL (8.3-10.6); CHOLESTEROL RISK RATIO 2.6 (<5); CREATININE FOR GFR 1.21 MG/DL (0.55-1.30); HDL CHOLESTEROL 49.1 MG/DL (>40); LDL CHOLESTEROL 57.1 MG/DL (<100); NON-HDL-C 78.9 MG/DL; POTASSIUM SERUM 4.1 MMOL/L (3.5-5.1); TOTAL PROTEIN 6.1 G/DL (5.7-8.2)
[2024-01-04 11:12] LABS: TOTAL 25(OH) VITAMIN D 54.8 NG/ML (20.0-100.0)
== END ==
LOC: M WUC 08:02
PROVIDERS: ATTEND Registered Nurse
DX: E78.2 Mixed hyperlipidemia (principal); I10 Essential (primary) hypertension; M81.0 Age-related osteoporosis without current pathological fracture

== ENCOUNTER 2024-02-11 18:01 | Emergency (ER) | payer MEDICARE, OTHER ==
[~2024-02-11] VITALS: Ht 152.4 cm; Wt 67.1 kg
[~2024-02-11 18:01] MED LIST changes: +PIPE3.3729 IV; -ZOSY1SOL5 IV
[2024-02-11 18:32] LABS: ABG BASE EXCESS 1.6 (-2.0-2.0); ABG HCO3 24.4 MMOL/L (22.0-26.0); ABG O2 SATURATION 95.3 % (95.0-99.0); ABG PARTIAL PRESSURE CO2 32.8 mmHg (35.0-45.0); ABG PARTIAL PRESSURE O2 75.5 mmHg (75.0-100.0); ABG STANDARD HCO3 25.9 MMOL/L. (22.0-26.0); ABG TOTAL CO2 25.4 MMOL/L (23.0-31.0)
[2024-02-11 18:43] LABS: BASO # 0.1 10^3/uL (0.0-0.2); BASO % 0.3 % (0.0-1.0); EOS # 0.2 10^3/uL (0.0-0.5); HEMATOCRIT 39.1 % (36.0-47.0); HEMOGLOBIN 13.1 g/dl (12.0-15.5); LYMPH # 2.2 10^3/uL (1.5-5.0); LYMPH % 14.2 % (24.0-44.0); MEAN CORPUSCULAR HGB CONC 33.5 g/dl (32.0-36.5); MEAN CORPUSCULAR VOLUME 95.6 fl (80.0-96.0); MONO # 1.3 10^3/uL (0.0-0.8); MONO % 8.4 % (2.0-8.0); NEUTROPHILS # 11.9 10^3/uL (1.5-8.5); NEUTROPHILS % 75.7 % (36.0-66.0); PLATELET COUNT, AUTOMATED 212 10^3/uL (150-450); RED BLOOD COUNT 4.09 10^6/uL (4.00-5.40); WHITE BLOOD COUNT 15.7 10^3/uL (4.0-10.0)
[2024-02-11 18:59] LABS: CK-MB VALUE MASS < 1.0 NG/ML (<3.6)
[2024-02-11 19:00] LABS: CPK CREATINE PHOSPHOKINASE 54 U/L (34-145); MB/CK RELATIVE INDEX 1.85 (< OR =4)
[2024-02-11 19:01] LABS: ALBUMIN 3.5 G/DL (3.2-5.2); ALKALINE PHOSPHATASE 109 U/L (46-116); ALT/SGPT 14 U/L (7.0-40); AST/SGOT 13 U/L (<34); BILIRUBIN,DIRECT 0.3 MG/DL (<0.4); BILIRUBIN,TOTAL 0.7 MG/DL (0.3-1.2); BLOOD UREA NITROGEN 18 MG/DL (9-23); CALCIUM LEVEL 9.4 MG/DL (8.3-10.6); CARBON DIOXIDE LEVEL 30 MMOL/L (20-31); CHLORIDE LEVEL 104 MMOL/L (98-107); CREATININE FOR GFR 1.37 MG/DL (0.55-1.30); GLUCOSE, FASTING 114 MG/DL (74-106); SODIUM LEVEL 140 MMOL/L (136-145); TOTAL PROTEIN 6.8 G/DL (5.7-8.2)
[2024-02-11] MEDS: methylPREDNISolone 125MG 2ML VIAL IV ONE (19:17)
[2024-02-11] MEDS: ALBUTEROL SULFATE 2.5MG/0.5ML INH NEB SOLN NEB ONE (19:31)
[2024-02-11] MEDS: IPRATROPIUM 0.5MG/ALBUTEROL 2.5MG INH SOL UD 3ML (DUONEB) NEB ONE (19:31)
[2024-02-11] MEDS: METOPROLOL SUCC *XL* 25MG TAB (TopROL *XL*) PO ONE (21:28)
[2024-02-11] MEDS: METOPROLOL 5 MG/5 ML VIAL IV STA (21:28)
[2024-02-11 21:45] VITALS: BP 148/89; TEMP 98.1; O2SAT 93
== END 2024-02-11 22:00 | disposition home or self-care (01) ==
LOC: M ED 18:01
DX: J44.1 Chronic obstructive pulmonary disease with (acute) exacerbation (principal); R00.0 Tachycardia, unspecified; J98.11 Atelectasis; I48.91 Unspecified atrial fibrillation; I50.22 Chronic systolic (congestive) heart failure; I25.2 Old myocardial infarction; I11.0 Hypertensive heart disease with heart failure; K21.9 Gastro-esophageal reflux disease without esophagitis; Z88.5 Allergy status to narcotic agent; Z88.8 Allergy status to other drugs, medicaments and biological substances; Z79.1 Long term (current) use of non-steroidal anti-inflammatories (NSAID); Z79.51 Long term (current) use of inhaled steroids; Z79.2 Long term (current) use of antibiotics; Z79.52 Long term (current) use of systemic steroids; Z79.899 Other long term (current) drug therapy
CPT/HCPCS: 36600; 71045; 80048; 80076; 82550; 82553; 82803; 84484; 85025; 87486; 87581; 87633; 87798; 93005; 93041; 94640; 94760; 96374; 96375; 99285; J2919

== ENCOUNTER 2024-03-18 19:56 | Emergency (ER) | payer MEDICARE, OTHER ==
[~2024-03-18] VITALS: Ht 152.4 cm; Wt 65.9 kg
[2024-03-18 20:06] VITALS: TEMP 98.3
[2024-03-18 20:39] LABS: BASO % 0.4 % (0.0-1.0); EOS # 0.1 10^3/uL (0.0-0.5); EOS % 0.7 % (0.0-3.0); HEMATOCRIT 36.8 % (36.0-47.0); LYMPH # 1.8 10^3/uL (1.5-5.0); LYMPH % 21.3 % (24.0-44.0); MEAN CORPUSCULAR HEMOGLOBIN 31.7 pg (27.0-33.0); MEAN CORPUSCULAR HGB CONC 32.6 g/dl (32.0-36.5); MEAN CORPUSCULAR VOLUME 97.4 fl (80.0-96.0); NEUTROPHILS # 5.5 10^3/uL (1.5-8.5); NEUTROPHILS % 65.4 % (36.0-66.0); PLATELET COUNT, AUTOMATED 257 10^3/uL (150-450); RED BLOOD COUNT 3.78 10^6/uL (4.00-5.40); WHITE BLOOD COUNT 8.3 10^3/uL (4.0-10.0)
[2024-03-18] MEDS: ONDANSETRON 4MG 2ML VIAL IV ONE (21:00)
[2024-03-18] MEDS: MORPHINE 2 MG/ML 1ML VIAL IV ONE (21:01)
[2024-03-18 21:02] LABS: ALBUMIN 3.4 G/DL (3.2-5.2); BILIRUBIN,DIRECT 0.1 MG/DL (<0.4); BILIRUBIN,TOTAL 0.4 MG/DL (0.3-1.2); CALCIUM LEVEL 9.4 MG/DL (8.3-10.6); CREATININE FOR GFR 1.23 MG/DL (0.55-1.30); GLOMERULAR FILTRATION RATE 44.2 (>32); POTASSIUM SERUM 4.2 MMOL/L (3.5-5.1); TOTAL PROTEIN 6.7 G/DL (5.7-8.2)
[2024-03-18 21:04] LABS: THYROXINE (T4) 11.7 UG/DL (4.5-10.9)
[2024-03-18 21:05] LABS: THYROID STIMULATING HORMONE 2.399 uIU/ML (0.55-4.78)
[2024-03-18] MEDS ORDERED: ISOVUE-370 76% 100ML VIAL As Ordered ONE (21:59)
[2024-03-19] MEDS: MORPHINE 2 MG/ML 1ML VIAL IV ONE (00:01)
[2024-03-19] MEDS ORDERED: PERC5TAB12 PO (00:03)
[2024-03-19 00:16] VITALS: O2SAT 99
[2024-03-19] MEDS: OXYCODONE/APAP 5MG/325MG(HOME DOSE PACK) PO ONE (00:31)
[2024-03-19 00:32] VITALS: BP 178/86
== END 2024-03-19 00:35 | disposition home or self-care (01) ==
LOC: EDBD 19:56 → M ED 19:56
DX: S20.219A Contusion of unspecified front wall of thorax, initial encounter (principal); S22.070A Wedge compression fracture of T9-T10 vertebra, initial encounter for closed fracture; Y92.9 Unspecified place or not applicable; Y93.9 Activity, unspecified; Y99.9 Unspecified external cause status; I48.91 Unspecified atrial fibrillation; I25.2 Old myocardial infarction; I10 Essential (primary) hypertension; J44.9 Chronic obstructive pulmonary disease, unspecified; K21.9 Gastro-esophageal reflux disease without esophagitis; Z88.5 Allergy status to narcotic agent; Z88.8 Allergy status to other drugs, medicaments and biological substances; Z79.1 Long term (current) use of non-steroidal anti-inflammatories (NSAID); Z79.51 Long term (current) use of inhaled steroids; Z79.52 Long term (current) use of systemic steroids; Z79.899 Other long term (current) drug therapy
CPT/HCPCS: 71101; 71260; 80048; 80076; 83880; 84436; 84443; 85025; 87040; 87486; 87581; 87633; 87798; 93005; 93041; 94760; 96374; 96375; 96376; 99285; J2405; Q9967

== ENCOUNTER → 2024-11-14 | Outpatient (REF) | payer MEDICARE, OTHER ==
[~2024-11-14] MED LIST changes: +PERC5TAB12 PO
== END ==
LOC: M LAB REF 16:50
PROVIDERS: ATTEND Nurse Practitioner Family
DX: I10 Essential (primary) hypertension (principal); N39.0 Urinary tract infection, site not specified